=== PATIENT | female | born 1965 | race Caucasian/White ===

== ENCOUNTER 2022-05-19 11:36 | Emergency (ER) | payer MEDICARE, SELFPAY ==
[2022-05-19 11:48] VITALS: BP 120/80; PULSE 78; RESP 16; TEMP 36.6; O2SAT 96; BMI 30.5
--- NOTE | 2022-05-19 11:57 | DI.RAD.S_ITS ---
PROCEDURE: XR TIBIA FUBULA RT 2V INDICATIONS: leg pain,unable to walk on it TECHNIQUE: 2 views of the tibia and fibula were acquired. COMPARISON: None. FINDINGS: Bones: No fractures or dislocations. Right knee total arthroplasty appears grossly intact. No suspicious bony lesions. Soft tissues: No suspicious soft tissue calcifications or masses. IMPRESSION: No acute radiographic findings. If pain persists, followup imaging in 5-7 days is recommended to exclude occult fracture. Dictated by: Zahida Collazo M.D. on 05/19/2022 at 13:22 Approved by: Zahida Collazo M.D. on 05/19/2022 at 13:23
--- NOTE | 2022-05-19 13:36 | DI.US.S_ITS ---
PROCEDURE: US PERIPH VENOUS LOW EXTREM RT INDICATIONS: PAIN AND SWELLING TECHNIQUE: Real-time imaging, as well as color and pulse Doppler interrogation, were performed of the lower extremity deep veins from the inguinal ligament to the popliteal fossa. COMPARISON: None. FINDINGS: The common femoral, femoral and popliteal veins are normally compressible, and free of intraluminal thrombus. Color and pulse Doppler demonstrate normal phasic intraluminal flow. There is normal augmentation response to distal compression maneuver. Posterolateral right ankle subcutaneous soft tissue edema without focal fluid collection. IMPRESSION: Negative for deep venous thrombosis of the right lower extremity. Dictated by: Avery Ramos M.D. on 05/19/2022 at 14:22 Approved by: Avery Ramos M.D. on 05/19/2022 at 14:23
--- NOTE | 2022-05-19 13:36 | DI.RAD.S_ITS ---
PROCEDURE: XR ANKLE RT MIN 3V INDICATIONS: Ankle pain, swelling TECHNIQUE: 3 views of the ankle were acquired. COMPARISON: [facility], CR, XR FOOT RT MIN 3V, 05/19/2022, 13:39. FINDINGS: Bones: Rounded calcifications are noted at the distal fibular tip. There is ill-defined, nondisplaced lucency traversing the posterior aspect of the calcaneus. Soft tissues: Ankle edema is present. Achilles tendon appears normal. IMPRESSION: Rounded calcifications distal to the fibula appearing chronic suggestive of old injury or trauma. However, superimposed acute avulsion cannot be excluded recommend correlation point tenderness. Ill-defined nondisplaced lucency traversing the posterior calcaneus. While this could be so artifact secondary to superimposition of soft tissues, recommend correlation point tenderness and dedicated calcaneal views if there is concern for fracture. Dictated by: Kayley Ceballos M.D. on 05/19/2022 at 14:32 Approved by: Kayley Ceballos M.D. on 05/19/2022 at 14:38
--- NOTE | 2022-05-19 13:36 | DI.RAD.S_ITS ---
PROCEDURE: XR FOOT RT MIN 3V INDICATIONS: Ankle pain, swelling TECHNIQUE: 3 views of the foot were acquired. COMPARISON: None. FINDINGS: Bones: Nondisplaced ill-defined lucency traversing the distal calcaneus. Rounded ossifications are noted distal to the fibula. There is distal fibular tip lucency better seen on current exam compared to ankle exam. Soft tissues: Ankle edema is present. Achilles tendon appears normal. IMPRESSION: Rounded ossifications distal to the fibula appearing chronic. However, small superimposed avulsion/fracture appears present, consistent with acute/subacute fracture. Recommend correlation point tenderness. Ill-defined lucency traversing the posterior calcaneus possibly artifactual. However, calcaneal views are recommended if point tenderness and concern for fracture persists. Dictated by: Kayley Ceballos M.D. on 05/19/2022 at 14:38 Approved by: Kayley Ceballos M.D. on 05/19/2022 at 14:40
[2022-05-19] MEDS: KETOROLAC 30 MG/ML VIAL IM (13:59)
--- NOTE | 2022-05-19 15:26 | ED_ITS ---
HPI - Extremity Problem <Andrei Mann PA-C - Last Filed: 05/19/22 15:43> General Chief complaint: Extremity Problem,Nontraumatic Stated complaint: POSS BROKEN RT TIBIA Time Seen by Provider: 05/19/22 11:57 Source: patient Mode of arrival: Wheelchair History of Present Illness HPI Narrative: 57-year-old female with past medical history arthritis presents to the ED with 4 days of right-sided lower leg pain. Patient denies any trauma. Patient endorses pain on the lateral aspect of her right ankle with redness, swelling that is migrating from the ankle upwards into her lower leg. Patient endorses a left knee surgery 2 months ago. Patient denies history of blood clots. Patient denies estrogen use. Patient is a past smoker. Patient denies recent immobilization. Patient states that she has been using crutches since the pain makes it unable for her to bear weight and walk on the right leg. Patient denies numbness, tingling, weakness. Related Data Home Medications Medication Instructions Recorded Confirmed aripiprazole 10 mg tablet (Abilify) 10 mg PO DAILY 05/19/22 06/01/22 celecoxib [Celebrex] PO 05/19/22 06/01/22 divalproex [Depakote] PO 05/19/22 06/01/22 duloxetine 60 mg capsule,delayed 60 mg PO DAILY 05/19/22 06/01/22 release fexofenadine 60 mg tablet 60 mg PO BID 05/19/22 06/01/22 fluticasone propionate 50 1 spray intranasal DAILY 05/19/22 06/01/22 mcg/actuation nasal spray,suspension (Children's Flonase Allergy Relief) memantine PO 05/19/22 06/01/22 pregabalin [Lyrica] PO 05/19/22 06/01/22 Allergies Allergy/AdvReac Type Severity Reaction Status Date / Time No Known Drug Allergies Allergy Unverified 06/01/22 13:16 Review of Systems <Andrei Mann PA-C - Last Filed: 05/19/22 15:43> Review of Systems ROS Unobtainable: All systems reviewed & are unremarkable except as noted in HPI and below Constitutional Constitutional: Denies chills, Denies fatigue, Denies fever(s), Denies frequent falls, Denies lethargy and Denies weakness Eyes Eyes: Denies change in vision, Denies eye discharge, Denies irritation and Denies loss of vision ENT Ears, Nose, Mouth, and Throat: Denies change in voice, Denies dizziness, Denies neck pain, Denies sore throat and Denies throat swelling Cardiovascular Cardiovascular: Denies chest pain, Denies irregular heart rhythm, Denies lightheadedness, Denies palpitations, Denies dyspnea, Denies dyspnea on exertion and Denies orthopnea Respiratory Respiratory: Denies cough, Denies dyspnea, Denies dyspnea on exertion and Denies wheezing Gastrointestinal Gastrointestinal: Denies abdominal pain, Denies change in bowel habits, Denies diarrhea, Denies nausea and Denies vomiting Genitourinary Genitourinary: Denies hematuria, Denies flank pain, Denies urinary incontinence and Denies urinary urgency Musculoskeletal Musculoskeletal: Denies back pain, Denies muscle weakness, Denies neck pain, Denies numbness and Denies tingling Comments: Right lower leg pain, redness, swelling Integumentary/Breasts Skin/Breast: Denies pruritus, Denies erythema, Denies rash and Denies wounds Neurologic Neurologic: Denies behavioral changes, Denies confusion, Denies dizziness, Denies frequent falls, Denies loss of vision, Denies numbness, Denies tingling and Denies weakness Psychiatric Psychiatric: Denies anxiety, Denies behavioral changes, Denies confusion, Denies depression, Denies homicidal ideation and Denies suicidal ideation Endocrine Endocrine: Denies fatigue, Denies flushing and Denies palpitations Hematologic/Lymphatic Hematologic/Lymphatic: Denies easy bruising Allergic/Immunologic Allergic/Immunologic: Denies urticaria, Denies throat swelling and Denies wheezing Patient History <Andrei Mann PA-C - Last Filed: 05/19/22 15:43> Social History Smoking Status: Former smoker Smoking Status: Former smoker alcohol intake frequency: 0-2 drinks per day Substance Use Type: does not use Exam <Andrei Mann PA-C - Last Filed: 05/19/22 15:43> Narrative Exam Narrative: Const General:?cooperative, healthy appearing and comfortable HENMT Head:?normal to inspection Ears:?hearing grossly normal bilaterally Nose:?external nose normal Face and sinus:?normal facial exam and sinuses nontender Mouth:?oral mucosae normal Throat:?posterior oropharynx normal Eyes General:?appearance normal, both eyes and all related structures Neck Neck:?normal visual inspection and no lymphadenopathy noted Resp Effort & Inspection:?normal respiratory effort Auscultation:?clear to auscultation bilaterally Cardio Rate:?regular rate Rhythm:?regular rhythm Musculoskeletal Tenderness to palpation, erythema, swelling of lateral malleolar aspect of right ankle, extending up into the gannon area. Strength and sensation intact. Full range of motion. Patient is neurovascularly intact. Neuro General:?patient alert, patient awake and patient oriented x3 Initial Vital Signs Initial Vital Signs: Vital Signs Temperature 97.8 F 05/19/22 11:48 Pulse Rate 78 05/19/22 11:48 Respiratory Rate 16 05/19/22 11:48 Blood Pressure 120/80 05/19/22 11:48 Pulse Oximetry 96 05/19/22 11:48 Oxygen Delivery Method 05/19/22 11:48 <Silvano Stewart MD - Last Filed: 06/30/22 08:50> Initial Vital Signs Initial Vital Signs: Vital Signs Temperature 97.8 F 05/19/22 11:48 Pulse Rate 78 05/19/22 11:48 Respiratory Rate 16 05/19/22 11:48 Blood Pressure 120/80 05/19/22 11:48 Pulse Oximetry 96 05/19/22 11:48 Oxygen Delivery Method 05/19/22 11:48 Course <Andrei Mann PA-C - Last Filed: 05/19/22 15:43> Orders Ordered: Discontinued Medications Ketorolac Tromethamine (Ketorolac 30 Mg/Ml Vial) 30 mg IM NOW ONE Stop: 05/19/22 13:38 Last Admin: 05/19/22 13:59 Dose: 30 mg Documented By: AT Vital Signs Vital signs: Vital Signs - 8 hr 05/19/22 11:48 Temperature 97.8 F Pulse Rate 78 Respiratory Rate 16 Blood Pressure 120/80 Pulse Oximetry 96 Oxygen Delivery Method Room Air <Silvano Stewart MD - Last Filed: 06/30/22 08:50> Orders Ordered: Discontinued Medications Ketorolac Tromethamine (Ketorolac 30 Mg/Ml Vial) 30 mg IM NOW ONE Stop: 05/19/22 13:38 Last Admin: 09/06/22 13:59 Dose: 30 mg Documented By: AT Vital Signs Vital signs: Vital Signs - 8 hr 05/19/22 11:48 Temperature 97.8 F Pulse Rate 78 Respiratory Rate 16 Blood Pressure 120/80 Pulse Oximetry 96 Oxygen Delivery Method Room Air MDM - Extremity (Nontraumatic) <Andrei Mann PA-C - Last Filed: 05/19/22 15:43> Imaging Data US - DVT: Radiologist's Impression: PROCEDURE:? US PERIPH VENOUS LOW EXTREM RT ? INDICATIONS:? PAIN AND SWELLING ? TECHNIQUE:? Real-time imaging, as well as color and pulse Doppler interrogation, were performed of the lower extremity deep veins from the inguinal ligament to the popliteal fossa.? ? COMPARISON:? None. ? FINDINGS:? The common femoral, femoral and popliteal veins are normally compressible, and free of intraluminal thrombus.? Color and pulse Doppler demonstrate normal phasic intraluminal flow.? There is normal augmentation response to distal compression maneuver. ? ? Posterolateral right ankle subcutaneous soft tissue edema without focal fluid collection. ? IMPRESSION:? ? Negative for deep venous thrombosis of the right lower extremity. ? ? ? Dictated by: Avery Ramos M.D. on 05/19/2022 at 14:22 ? ? Approved by: Avery Ramos M.D. on 05/19/2022 at 14:23 ? Extremity x-ray #1: Radiologist's Impression: PROCEDURE:? XR FOOT RT MIN 3V ? INDICATIONS:? Ankle pain, swelling ? TECHNIQUE:? 3 views of the foot were acquired.? ? COMPARISON:? None. ? FINDINGS:? ? Bones:? Nondisplaced ill-defined lucency traversing the distal calcaneus.? Rounded ossifications are noted distal to the fibula.? There is distal fibular tip lucency better seen on current exam compared to ankle exam. ? Soft tissues:? Ankle edema is present.? Achilles tendon appears normal.? ? ? IMPRESSION:? ? Rounded ossifications distal to the fibula appearing chronic.? However, small superimposed avulsion/fracture appears present, consistent with acute/subacute fracture.? Recommend correlation point tenderness.? ? ? Ill-defined lucency traversing the posterior calcaneus possibly artifactual.? However, calcaneal views are recommended if point tenderness and concern for fracture persists.? ? Dictated by: Kayley Ceballos M.D. on 05/19/2022 at 14:38 ? ? Approved by: Kayley Ceballos M.D. on 05/19/2022 at 14:40 ? Extremity x-ray #2: Radiologist's Impression: PROCEDURE:? XR ANKLE RT MIN 3V ? INDICATIONS:? Ankle pain, swelling ? TECHNIQUE:? 3 views of the ankle were acquired.? ? COMPARISON:? [facility], , XR FOOT RT MIN 3V, 05/19/2022, 13:39. ? FINDINGS:? ? Bones:? Rounded calcifications are noted at the distal fibular tip.? There is ill-defined, nondisplaced lucency traversing the posterior aspect of the calcaneus. ? Soft tissues:? Ankle edema is present.? Achilles tendon appears normal.? ? ? IMPRESSION:? ? Rounded calcifications distal to the fibula appearing chronic suggestive of old injury or trauma.? However, superimposed acute avulsion cannot be excluded recommend correlation point tenderness. ? Ill-defined nondisplaced lucency traversing the posterior calcaneus.? While this could be so artifact secondary to superimposition of soft tissues, recommend correlation point tenderness and dedicated calcaneal views if there is concern for fracture. ? Dictated by: Kayley Ceballos M.D. on 05/19/2022 at 14:32 ? ? Approved by: Kayley Ceballos M.D. on 05/19/2022 at 14:38 ? Extremity x-ray #3: Radiologist's Impression: PROCEDURE:? XR TIBIA FUBULA RT 2V ? INDICATIONS:? leg pain,unable to walk on it ? TECHNIQUE:? 2 views of the tibia and fibula were acquired.? ? COMPARISON:? None. ? FINDINGS:? ? Bones:? No fractures or dislocations.? Right knee total arthroplasty appears grossly intact.? No suspicious bony lesions.? ? Soft tissues:? No suspicious soft tissue calcifications or masses.? ? IMPRESSION:? No acute radiographic findings. If pain persists, followup imaging in 5-7 days is recommended to exclude occult fracture. ? ? Dictated by: Zahida Collazo M.D. on 05/19/2022 at 13:22 ? ? Approved by: Zahida Collazo M.D. on 05/19/2022 at 13:23 ? [facility] Narrative Medical decision making narrative: 57-year-old female with past medical history arthritis presents to the ED with 4 days of right-sided lower leg pain. Concern for fracture/dislocation versus DVT versus cellulitis versus other. X-rays show questionable fractures, however there is no correlation with point tenderness on exam. Ultrasound negative for DVTs. Patient's tenderness is on the lateral malleolar aspect of the right ankle. There is also marked erythema, swelling, all of which are consistent with cellulitis. Will prescribe antibiotics. ED return precautions discussed with patient. Patient verbalized understanding. Discharge Plan Departure Patient Disposition: Home Clinical Impression: Cellulitis Instructions: DI for Cellulitis -- Adult Activity Restrictions/Additional Instructions: You were evaluated in the ED today for right-sided lower leg pain. Your x-rays and ultrasound did not show any evidence of dislocations or blood clots. The x- ray read mentioned a couple of areas of possible old fractures. However, today you did not have any pain in those areas. Your symptoms today are most consistent with a skin infection or cellulitis. You have been prescribed the antibiotic cephalexin. Please complete the full course of antibiotics. You may take Tylenol or ibuprofen for pain. Please return to the ED if your symptoms do not improve in the next 3-4 days, your symptoms worsen, you experience fever, chills, vomiting. Prescriptions: No Action divalproex [Depakote] PO memantine PO celecoxib [Celebrex] PO pregabalin [Lyrica] PO duloxetine 60 mg capsule,delayed release(DR/EC) 60 mg PO DAILY aripiprazole [Abilify] 10 mg tablet 10 mg PO DAILY fluticasone propionate [Children's Flonase Allergy Rlf] 50 mcg/actuation spray,suspension 1 spray intranasal DAILY Rx Instructions: administer into each nostril fexofenadine 60 mg tablet 60 mg PO BID Visit Report Forms: Patient Portal/API <Silvano Stewart MD - Last Filed: 06/30/22 08:50> Cosign ED Attending Coskobyature Attestation: I was immediately available for consultation of this patient was seen and evaluated by the APC in the department.
[2022-05-19 15:47] VITALS: BP 121/87; PULSE 85; RESP 18; O2SAT 98
== END 2022-05-19 15:49 | disposition home or self-care (01) ==
PROVIDERS: Emergency Provider Student in an Organized Health Care Education/Training Program
DX: L03.115 Cellulitis of right lower limb (principal)
CPT/HCPCS: 73590; 73610; 73630; 93971; 96372; 99284; J1885

== ENCOUNTER 2023-09-06 10:58 | Emergency (ER) | payer MEDICARE, SELFPAY ==
[2023-09-06 11:25] VITALS: BP 137/85; PULSE 72; RESP 16; TEMP 36.9; O2SAT 99; BMI 27.3
[2023-09-06 13:35] VITALS: BP 128/84; PULSE 70; RESP 24; TEMP 36; O2SAT 99
--- NOTE | 2023-09-06 13:43 | ED.URI ---
HPI - URI/Sore Throat General Chief Complaint: Upper Respiratory Symptoms Stated Complaint: covid Time Seen by Provider: 09/06/23 13:28 Source: patient Mode of arrival: Ambulatory History of Present Illness HPI Narrative: Patient is a 58-year-old female history of asthma, pacemaker for sick sinus syndrome, presenting today with likely COVID. Her dad tested positive 4 days ago she started having symptoms yesterday. She does report that she is coughing quite a bit she is been using her albuterol inhaler. Some fever chills body aches. Generally not feeling. Related Data Home Medications Medication Instructions Recorded Confirmed aripiprazole 10 mg tablet (Abilify) 10 mg PO DAILY 05/19/22 06/01/22 celecoxib [Celebrex] PO 05/19/22 06/01/22 divalproex [Depakote] PO 05/19/22 06/01/22 duloxetine 60 mg capsule,delayed 60 mg PO DAILY 05/19/22 06/01/22 release fexofenadine 60 mg tablet 60 mg PO BID 05/19/22 06/01/22 fluticasone propionate 50 1 spray intranasal DAILY 05/19/22 06/01/22 mcg/actuation nasal spray,suspension (Children's Flonase Allergy Relief) memantine PO 05/19/22 06/01/22 pregabalin [Lyrica] PO 05/19/22 06/01/22 Previous Rx's Medication Instructions Recorded albuterol sulfate 90 mcg/actuation 2 puff inhalation Q4-6H PRN 09/06/23 aerosol inhaler shortness of breath or wheezing #8.5 grams Allergies Allergy/AdvReac Type Severity Reaction Status Date / Time No Known Drug Allergies Allergy Unverified 06/01/22 13:16 Patient History Social History Smoking Status: Former smoker Smoking Status: Former smoker alcohol intake frequency: 0-2 drinks per day Substance Use Type: does not use Exam Initial Vital Signs Initial Vital Signs: Vital Signs Temperature 98.4 F 09/06/23 11:25 Pulse Rate 72 09/06/23 11:25 Respiratory Rate 16 09/06/23 11:25 Blood Pressure 137/85 09/06/23 11:25 Pulse Oximetry 99 09/06/23 11:25 Oxygen Delivery Method Room Air 09/06/23 11:25 GENERAL: Alert 58-year-old female appears to not feel well HEENT: Head atraumatic,EOMI, pupils reactive, face symmetric, [moist] mucous membranes CARDIOVASCULAR: Regular rate and rhythm without murmurs, rubs or gallops. RESPIRATORY: Mild tachypnea clear bilaterally ABDOMEN: Soft, nontender. Normoactive bowel sounds all 4 quadrants. No guarding or rebound. EXTREMITIES: Normal range of motion, no clubbing or edema. Neurovascularly intact NEUROLOGICAL: Alert and oriented x4.Normal gait and speech. SKIN: Warm, dry, no laceration, no petechiae, no rashes or lesions. Course Orders Ordered: Discontinued Medications Albuterol (Albuterol Hfa Prepack) 1 box MISC DIRECTED ONE Stop: 09/06/23 14:27 Last Admin: 09/06/23 14:48 Dose: 1 box Documented By: ILIANA Albuterol/Ipratropium (Albuterol/Ipratropium 3 Ml Ampul) 3 ml INH NOW ONE Stop: 09/06/23 13:41 Last Admin: 09/06/23 14:06 Dose: 3 ml Documented By: CAMILLA Vital Signs Vital signs: Vital Signs - 8 hr 09/06/23 11:25 09/06/23 13:35 09/06/23 14:06 Temperature 98.4 F 96.8 F L Pulse Rate 72 70 70 Respiratory Rate 16 24 20 Blood Pressure 137/85 128/84 Pulse Oximetry 99 99 99 Oxygen Delivery Method Room Air Room Air Room Air 09/06/23 14:49 Temperature Pulse Rate 80 Respiratory Rate 22 Blood Pressure 132/78 Pulse Oximetry 96 Oxygen Delivery Method Room Air MDM - URI/Sore Throat MDM Narrative Medical decision making narrative: Patient 58-year-old female history of asthma and pacemaker presenting today with presumed COVID infection. Both of her parents have COVID in are here with her. She does have some obvious respiratory distress but lungs are clear not hypoxic. She is given albuterol which did make her a little shaky helped her breathing significantly. She is not sure she has an albuterol inhaler so she is given a prepack and prescription for both. Her lungs are clear without wheezing or rales. No need for chest x-ray at this time. We discussed supportive care and when to return to ED. Discharge Plan Departure Patient Disposition: Home Clinical Impression: COVID-19 Instructions: COVID-19 Activity Restrictions/Additional Instructions: *You have been diagnosed with COVID-19 *What to do: At this time recommend staying hydrated Tylenol Motrin as needed. You may intermittently check your oxygen at home with a pulse oximeter. Expect to continue to have fevers and feel poorly for the next 5-10 days *Continue to take medications as directed Albuterol inhaler 1-2 puffs every 4 hours if needed for coughing and shortness of breath *Follow up with your primary care provider in 2-3 days or call [phone] *Return to ER if you should have increasing shortness of breath oxygen less than 89% for more than 1 hour or any new, worsening or concerning symptoms Prescriptions: New albuterol sulfate 90 mcg/actuation HFA aerosol inhaler 2 puff INHALATION Q4-6H PRN (Reason: shortness of breath or wheezing) Qty: 8.5 0RF No Action divalproex [Depakote] PO memantine PO celecoxib [Celebrex] PO pregabalin [Lyrica] PO duloxetine 60 mg capsule,delayed release(DR/EC) 60 mg PO DAILY aripiprazole [Abilify] 10 mg tablet 10 mg PO DAILY fluticasone propionate [Children's Flonase Allergy Rlf] 50 mcg/actuation spray,suspension 1 spray intranasal DAILY Rx Instructions: administer into each nostril fexofenadine 60 mg tablet 60 mg PO BID Referrals: Miscellaneous,Doctor, MD [Primary Care Provider] - Stand Alone Forms: Patient Portal/API
[2023-09-06 14:06] VITALS: PULSE 70; RESP 20; O2SAT 99
[2023-09-06] MEDS: ALBUTEROL/IPRATROPIUM 3 ML AMPUL INH (14:06)
--- NOTE | 2023-09-06 14:12 | RT ---
pt gregory david tx well, no distress noted and on room air
[2023-09-06] MEDS: ALBUTEROL HFA PREPACK 1 BOX MISC (14:48)
[2023-09-06 14:49] VITALS: BP 132/78; PULSE 80; RESP 22; O2SAT 96
== END 2023-09-06 14:52 | disposition home or self-care (01) ==
PROVIDERS: Emergency Provider Emergency Medicine
DX: U07.1 COVID-19 (principal)
CPT/HCPCS: 94640; 99283